=== PATIENT | female | born 1980 | race African-American/Black ===

== ENCOUNTER 2017-06-15 19:36 | Emergency (ER) | payer OTHER ==
[~2017-06-15] VITALS: Ht 162.6 cm; Wt 70.3 kg
[2017-06-15] MEDS ORDERED: BENADRYL25 MG PO (19:56)
[2017-06-15] MEDS ORDERED: CLARITIN10 MG PO (19:57)
[2017-06-15 20:11] LABS: URINE BILIRUBIN NEGATIVE (Negative); URINE BLOOD 3+ (Negative); URINE COLOR YELLOW; URINE GLUCOSE-RANDOM* NEGATIVE (Negative); URINE KETONES NEGATIVE (Negative); URINE NITRITE NEGATIVE (Negative); URINE PROTEIN (DIPSTICK) NEGATIVE (Negative); URINE SPECIFIC GRAVITY <= 1.005 (1.003-1.035); URINE UROBILINOGEN 0.2 E.U./dl (0.2-1.0)
[2017-06-15 20:21] LABS: BASOPHILS 0.8 % (0.0-2.0); HEMATOCRIT 37.1 % (37.0-47.0); LYMPHOCYTES 27.1 % (24.0-44.0); MANUAL DIFF NO; MCH 26.2 pg (26.0-34.0); MCHC 32.3 g/dL (28.0-37.0); MCV 80.9 fL (80.0-100.0); MONOCYTES 6.1 % (1.0-8.0); PLATELET COUNT 131 thou/uL (150-400); RBC 4.58 mil/uL (4.20-5.00); RDW 14.4 % (10.5-14.5); WBC 7.7 thou/uL (4.0-11.0)
[2017-06-15 20:24] LABS: SQUAMOUS 0-3 Few /LPF (0-3)
[2017-06-15 20:25] LABS: BACTERIA None Seen /HPF (None Seen); CASTS None Seen /LPF (None Seen); CRYSTALS None Seen /LPF (None Seen); URINE RBC 3-10 Few /HPF (0-2); URINE WBC 0-5 Rare /HPF (0-5)
[2017-06-15 20:28] LABS: CALCIUM 8.8 mg/dL (8.5-10.1); CREATININE 0.6 mg/dL (0.6-1.0); POTASSIUM 3.7 mmol/L (3.5-5.1)
[2017-06-15 20:34] LABS: ALBUMIN 3.3 g/dL (3.4-5.0); TOTAL BILIRUBIN 0.1 mg/dL (<0.1-1.0); TOTAL PROTEIN 6.7 g/dL (6.4-8.2)
[2017-06-15 20:44] LABS: LARGE PLATELETS FEW
[2017-06-15 23:43] VITALS: BP 132/74
[2017-06-16 16:08] LABS: CHLAMYDIA TRACHOMATIS-PCR Negative (Negative); NEISSERIA GONORRHEA-PCR Negative (Negative)
== END 2017-06-15 23:44 | disposition home or self-care (01) ==
LOC: ER 19:36
PROVIDERS: Physician Assistant
DX: Z31.82 Encounter for Rh incompatibility status (principal); O20.0 Threatened abortion; Z3A.08 8 weeks gestation of pregnancy